=== PATIENT | female | born 1995 | race African-American/Black ===

== ENCOUNTER 2023-08-08 16:49 | Emergency (ER) | payer OTHER ==
[2023-08-08] MEDS ORDERED: Ibuprofen 200 MG TAB ONE (17:35)
== END 2023-08-08 18:47 | disposition home or self-care (01) ==
LOC: CSHERS 16:49
DX: R07.2 Precordial pain (principal); E78.5 Hyperlipidemia, unspecified; Z55.6 Problems related to health literacy
CPT/HCPCS: 71046; 93005; 93010